=== PATIENT | female | born 1945 | race Caucasian/White ===

== ENCOUNTER 2017-01-02 05:30 | Observation (INO) | payer MEDICARE ==
[~2017-01-02] VITALS: Ht 162.6 cm; Wt 80.5 kg
[~2017-01-02 05:30] MED LIST: ALBUTEROL SULFATE HFA 90 MCG/PUFF 8 GM INHALER IH ONE; ALEN70TA48 PO; CARB200T6 PO; CARI350 PO; DEXAMETHASONE SOD PHOS 4 MG/ML VIAL IVP ONE; FentaNYL CITRATE-PF 100 MCG/2 ML VIAL IVP ONE; GABA-531 PO; GLYCOPYRROLATE 0.2 MG/ML VIAL IM ONE; LIDOCAINE HCL/PF 2% 5 ML VIAL IM ONE; LOSA50TA37 PO; METOPROLOL TARTRATE 5 MG/5 ML VIAL IVP ONE; MIDAZOLAM HCL 2 MG/2 ML VIAL IVP ONE; ONDANSETRON HCL 4 MG/2 ML VIAL IVP ONE; PRAV40 PO; PROPOFOL 1% 20 ML VIAL IVP ONE; ROCURONIUM BROMIDE 10 MG/ML 5 ML VIAL IVP ONE
[2017-01-02] MEDS ORDERED: RINGERS SOLUTION,LACTATED 1,000 ML IV ONE ×2 (05:49→06:00)
[2017-01-02] MEDS ORDERED: VANCOMYCIN HCL 1 GM/D5% WATER 200 ML IV ONE (07:00)
[2017-01-02] MEDS ORDERED: BUPIVACAINE 0.25%/EPI 1:200,000/PF 10 ML VIAL ONE (07:01)
[2017-01-02] MEDS ORDERED: IOHEXOL 240 MG/ML 20 ML VIAL ONE (07:01)
[2017-01-02] MEDS ORDERED: ZOLPIDEM TARTRATE 10 MG TABLET PO PRN (07:30)
[2017-01-02] MEDS ORDERED: DiphenhydrAMINE HCL 50 MG/ML VIAL IVP PRN (07:30)
[2017-01-02] MEDS ORDERED: FentaNYL CITRATE-PF 100 MCG/2 ML VIAL IVP PRN (07:45)
[2017-01-02] MEDS ORDERED: MEPERIDINE-PF 25 MG/ML SYRINGE IVP PRN (07:45)
[2017-01-02] MEDS ORDERED: HYDROmorphone 2 MG/ML SYRINGE IVP PRN (07:45)
[2017-01-02 10:28] VITALS: BP 147/67
[2017-01-02] MEDS ORDERED: ACETAMINOPHEN 1000 MG/ISO-OSM 100 ML IV ONE ×2 (10:30)
[2017-01-02] MEDS ORDERED: HYDROmorphone 2 MG/ML SYRINGE IVP ONE (10:30)
[2017-01-02] MEDS: DOCUSATE SODIUM 100 MG CAPSULE PO SCH ×2 (11:55→21:00)
[2017-01-02] MEDS: OXYGEN THERAPY IH SCH ×2 (12:42→20:00)
[2017-01-02 13:14] VITALS: BP 158/71
[2017-01-02] MEDS: OxyCODONE HCL/ACETAMINOPHEN 5-325 MG TABLET PO PRN (13:25)
[2017-01-02 15:38] VITALS: BP 144/77
[2017-01-02] MEDS: CYCLOBENZAPRINE HCL 10 MG TABLET PO SCH ×2 (15:40→21:00)
[2017-01-02] MEDS: HYDROmorphone 2 MG/ML SYRINGE IVP PRN ×2 (15:40→21:09)
[2017-01-02 20:01] VITALS: BP 140/72
[2017-01-02 23:30] VITALS: BP 139/74
[2017-01-03 02:55] VITALS: BP 136/72
[2017-01-03] MEDS: HYDROmorphone 2 MG/ML SYRINGE IVP PRN (02:55)
[2017-01-03] MEDS ORDERED: MORPHINE SULFATE 2 MG/ML SYRINGE IVP PRN (05:45)
[2017-01-03] MEDS ORDERED: ACETAMINOPHEN 325 MG TABLET PO PRN (05:45)
[2017-01-03] MEDS ORDERED: IPRATROPIUM BROMIDE 0.5 MG/2.5 ML NEB SOLUTION NEB PRN (05:45)
[2017-01-03] MEDS ORDERED: ZOLPIDEM TARTRATE 5 MG TABLET PO PRN (05:45)
[2017-01-03] MEDS ORDERED: ONDANSETRON HCL 4 MG/2 ML VIAL IVP PRN (05:45)
[2017-01-03] MEDS ORDERED: BISACODYL 10 MG RECTAL RECTAL SUPPOSITORY PR PRN (05:45)
[2017-01-03] MEDS ORDERED: ALBUTEROL SULFATE 2.5 MG/0.5 ML NEB SOLUTION NEB PRN (05:45)
[2017-01-03] MEDS ORDERED: OxyCODONE HCL/ACETAMINOPHEN 5-325 MG TABLET PO PRN (05:45)
[2017-01-03] MEDS: OxyCODONE HCL/ACETAMINOPHEN 5-325 MG TABLET PO PRN (07:56)
[2017-01-03] MEDS: DOCUSATE SODIUM 100 MG CAPSULE PO SCH (07:56)
[2017-01-03] MEDS: OXYGEN THERAPY IH SCH (07:57)
[2017-01-03] MEDS: CYCLOBENZAPRINE HCL 10 MG TABLET PO SCH (07:57)
[2017-01-03 07:59] VITALS: BP 138/67
[2017-01-03] MEDS ORDERED: HEPARIN SODIUM,PORCINE 5,000 UNITS/ML VIAL SQ SCH (08:00)
[2017-01-03] MEDS ORDERED: LOSARTAN POTASSIUM 50 MG TABLET PO SCH (09:00)
[2017-01-03] MEDS ORDERED: PANTOPRAZOLE SODIUM 40 MG DR TABLET PO SCH (09:00)
[2017-01-03] MEDS ORDERED: CARISOPRODOL 350 MG TABLET PO SCH (09:00)
[2017-01-03] MEDS ORDERED: CarBAMazepine 200 MG TABLET PO SCH (09:00)
[2017-01-03] MEDS ORDERED: GABAPENTIN 300 MG CAPSULE PO SCH (09:00)
[2017-01-03] MEDS ORDERED: PRAVASTATIN SODIUM 40 MG TABLET PO SCH (21:00)
[2017-01-09] MEDS ORDERED: ALENDRONATE SODIUM 70 MG TABLET PO SCH (09:00)
== END 2017-01-03 10:40 | disposition home or self-care (01) ==
LOC: 4E 05:30
PROVIDERS: ADMIT Orthopaedic Surgery Orthopaedic Surgery of the Spine; ATTEND Orthopaedic Surgery Orthopaedic Surgery of the Spine
DX: M80.08XA Age-related osteoporosis with current pathological fracture, vertebra(e), initial encounter for fracture (principal); I10 Essential (primary) hypertension; W19.XXXA Unspecified fall, initial encounter; Y93.89 Activity, other specified; Y92.89 Other specified places as the place of occurrence of the external cause; Y99.8 Other external cause status
CPT/HCPCS: 22513; 36415; 84132; 87081; 88307; 88311; 96374; 96375; 96376 ×2; 97161; 97165; C1713; G0378 ×2; G8981; G8982; G8983; G8987; G8988; G8989; J0131; J1100; J1170 ×2; J2250; J2405; J2704; J3010; J3370; J3490 ×5; J7120; Q9966; G0238; J3535